=== PATIENT | female | born 1945 | race African-American/Black ===

== ENCOUNTER 2016-05-25 10:32 | Emergency (ER) | payer MEDICARE ==
[~2016-05-25] VITALS: Ht 167.6 cm; Wt 90.7 kg
[~2016-05-25 10:32] MED LIST: AMLO10TA2 PO; CALC600T PO; CHOL10002 PO; ERGO2000 PO; GLIM4TAB2 PO; LISI1TAB7 PO; METF10002 PO; OMEG500C3 PO; POTA10CA PO; POTA99TA PO
--- NOTE | 2016-05-25 11:27 | RAD ---
Portable chest, 05/25/2016: History: Abnormal EKG The heart is mildly enlarged. There is tortuosity of the thoracic aorta. The pulmonary vascularity is normal. No pulmonary infiltrates are seen. There is no evidence of pleural fluid. Mild degenerative changes are evident in the spine. IMPRESSION: 1. Mild cardiomegaly and aortic ectasia. 2. No acute abnormality is detected.
--- NOTE | 2016-05-25 11:34 | EKG ---
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
[2016-05-25 11:36] LABS: BASO # 0.1 x10^3/uL (0.0-0.2); BASO % 1 % (0-3); EOS % 2 % (0-3); HEMATOCRIT 43.1 % (36.0-47.0); HEMOGLOBIN 14.2 g/dL (12.0-15.5); LYMPH % 25 % (24-48); MEAN CORPUSCULAR HEMOGLOBIN 26 pg (25-35); MEAN CORPUSCULAR HGB CONC 33 g/dL (31-37); MEAN CORPUSCULAR VOLUME 79 fL (79-100); MONO % 8 % (0-9); NEUT % 65 % (31-73); PLATELET COUNT 340 x10^3/uL (140-400); RED BLOOD COUNT 5.45 x10^6/uL (3.50-5.40); RED CELL DISTRIBUTION WIDTH 13.7 % (11.5-14.5); WHITE BLOOD COUNT 7.9 x10^3/uL (4.0-11.0)
[2016-05-25 11:50] LABS: CALCIUM 9.4 mg/dL (8.5-10.1); CREATININE 0.7 mg/dL (0.6-1.0); GFR 100.1; POTASSIUM 3.3 mmol/L (3.5-5.1)
[2016-05-25 11:59] LABS: DIRECT BILIRUBIN 0.1 mg/dL (0.0-0.2); MAGNESIUM 1.7 mg/dL (1.8-2.4); TOTAL BILIRUBIN 0.5 mg/dL (0.2-1.0)
[2016-05-25 12:05] LABS: CKMB INDEX 1.3 % (0-4); CKMB MASS 2.9 ng/mL (0.0-3.6)
[2016-05-25 12:18] VITALS: BP 170/85
--- NOTE | 2016-05-25 12:46 | PHYS DOC ---
Past Medical History Past Medical History: Diabetes-Type II, Hypertension Past Surgical History: Hysterectomy, Other Additional Past Surgical Histo: bladder sling; left knee Alcohol Use: None Drug Use: None Adult General Chief Complaint Chief Complaint: abnormal EKG HPI HPI Patient is a 70 year old female sent from her physician's office to the ED today for an abnormal EKG. The patient was seeing Dr. Sharp for a routine office visit. Her blood pressure was found to be a bit elevated, about 160 systolic. The patient recently had a in the family of her brother who of an [place]. The patient takes blood pressure medicine but in fact has not taken her medication yet today, she usually takes it at noon and her office visit was before noon. She had no complaints of chest pain, no shortness of air , no complaints of any type actually. Because of her elevated blood pressure, an EKG was obtained in the office and was found to be abnormal to the patient was sent to the ED for further evaluation. The patient has no complaints whatsoever although she is somewhat concerned about her elevated blood pressure and abnormal EKG. PCP Dr. Sharp Review of Systems Review of Systems Constitutional: Denies fever or chills , denies lightheadedness or syncope Eyes: Denies change in visual acuity, redness, or eye pain [] HENT: Denies nasal congestion or sore throat [] Respiratory: Denies cough or shortness of breath [] Cardiovascular: Denies chest pain GI: Denies abdominal pain, nausea, vomiting, bloody stools or diarrhea [] : Denies dysuria or hematuria [] Musculoskeletal: Denies back pain or joint pain [] Integument: Denies rash or skin lesions [] Neurologic: Denies headache, focal weakness or sensory changes [] Allergies Allergies Allergies Coded Allergies Type Severity Reaction Last Updated Verified Penicillins Allergy Severe Rash 05/27/15 Yes Physical Exam Physical Exam Constitutional: Well developed, well nourished, no acute distress, non-toxic appearance. [] HENT: Normocephalic, atraumatic, bilateral external ears normal, nose normal. [] Eyes: conjunctiva normal, no discharge. [] Neck: Normal range of motion, no stridor. [] Cardiovascular:Heart rate regular rhythm, no murmur [] Lungs & Thorax: Bilateral breath sounds clear to auscultation [] Abdomen: Bowel sounds normal, soft, no tenderness, no masses, no pulsatile masses. [] Skin: Warm, dry, no erythema, no rash. [] Extremities: No tenderness, no cyanosis, no clubbing, ROM intact, no edema. [] Neurologic: Alert and oriented X 3, normal motor function, normal sensory function, no focal deficits noted. [] Current Patient Data Vital Signs Vital Signs Date Time Temp Pulse Resp B/P Pulse Ox O2 Delivery O2 Flow Rate FiO2 05/25/16 11:51 87 20 168/94 96 Room Air 05/25/16 10:42 97.9 97.9 Lab Values Laboratory Tests Test 05/25/16 11:25 White Blood Count 7.9x10^3/uL (4.0-11.0) Red Blood Count 5.45x10^6/uL (3.50-5.40) H Hemoglobin 14.2g/dL (12.0-15.5) Hematocrit 43.1% (36.0-47.0) Mean Corpuscular Volume 79fL (79-100) Mean Corpuscular Hemoglobin 26pg (25-35) Mean Corpuscular Hemoglobin Concent 33g/dL (31-37) Red Cell Distribution Width 13.7% (11.5-14.5) Platelet Count 340x10^3/uL (140-400) Neutrophils (%) (Auto) 65% (31-73) Lymphocytes (%) (Auto) 25% (24-48) Monocytes (%) (Auto) 8% (0-9) Eosinophils (%) (Auto) 2% (0-3) Basophils (%) (Auto) 1% (0-3) Neutrophils # (Auto) 5.1x10^3uL (1.8-7.7) Lymphocytes # (Auto) 2.0x10^3/uL (1.0-4.8) Monocytes # (Auto) 0.6x10^3/uL (0.0-1.1) Eosinophils # (Auto) 0.1x10^3/uL (0.0-0.7) Basophils # (Auto) 0.1x10^3/uL (0.0-0.2) Sodium Level 141mmol/L (136-145) Potassium Level 3.3mmol/L (3.5-5.1) L Chloride Level 102mmol/L (98-107) Carbon Dioxide Level 29mmol/L (21-32) Anion Gap 10 (6-14) Blood Urea Nitrogen 10mg/dL (7-20) Creatinine 0.7mg/dL (0.6-1.0) Estimated GFR (Cockcroft-Gault) 100.1 Glucose Level 153mg/dL (70-99) H Calcium Level 9.4mg/dL (8.5-10.1) Magnesium Level 1.7mg/dL (1.8-2.4) L Total Bilirubin 0.5mg/dL (0.2-1.0) Direct Bilirubin 0.1mg/dL (0.0-0.2) Aspartate Amino Transferase (AST) 25U/L (15-37) Alanine Aminotransferase (ALT) 29U/L (14-59) Alkaline Phosphatase 67U/L (46-116) Creatine Kinase 231U/L (26-192) H Creatine Kinase MB (Mass) 2.9ng/mL (0.0-3.6) Creatine Kinase MB Relative Index 1.3% (0-4) Troponin I Quantitative < 0.017ng/mL (0.000-0.055) BJ-Xtj-Q-Type Natriuretic Peptide 36pg/mL (0-124) Total Protein 8.0g/dL (6.4-8.2) Albumin 4.0g/dL (3.4-5.0) Laboratory Tests 05/25/16 11:25 Laboratory Tests 05/25/16 11:25 EKG EKG 12-lead EKG read by me. There is no previous EKG in the patient's medical record here. Sinus rhythm. Heart rate 89. Left anterior fascicular block. Right bundle branch block. Bifascicular block. No STEMI. 1042 [] Radiology/Procedures Radiology/Procedures Portable chest x-ray read by the radiologist. No acute abnormality detected. [] Course & Med Decision Making Course & Med Decision Making Pertinent Labs and Imaging studies reviewed. (See chart for details) 70-year-old female presents for the complaint of abnormal EKG. She has a bifascicular block. Her blood pressure was also elevated, when she got here systolic of 184, however she has not taken her blood pressure medicine which was due to be taken at noon. She had it with her so I had her go ahead and take her own blood pressure medicine. I reviewed her chart and she has had a normal echocardiogram and normal nuclear stress test a couple of years ago here although she does not have an old EKG in our records for comparison. Dr. Sharp was able to look at an old EKG in the chart at the office and states that the bifascicular block is new. Labs remarkable only for potassium 3.3. The patient does take potassium supplementation. I ask her to increase her dose, double dose for the next week and follow that up with her PCP. I discussed the new finding of bifascicular block with Amparo, with the cardiology team. She reviewed the patient's EKG and visited with the patient, she made arrangements for the patient to be seen next week as an outpatient in the cardiology office. The patient and her family member are agreeable to that plan. [] Dragon Disclaimer Dragon Disclaimer This electronic medical record was generated, in whole or in part, using a voice recognition dictation system. Departure Departure Impression: Primary Impression: Bifascicular bundle branch block Additional Impression: Hypertension Disposition: 01 HOME, SELF-CARE Condition: STABLE Referrals: JESUS SHARP MD (PCP) Additional Instructions: Today, your blood pressure was high, but you had not taken your dose of blood pressure medicine yet. Continue to take your blood pressure medicine as prescribed. Be sure to take it is close to every 12 hours as you can. Your potassium was a little bit low. Double your dose of potassium (take 2 pills instead of 1) every day for one week. Let your doctor know about this the next time you are seen. Your EKG shows a partial heart block as we discussed. The cardiology team has made arrangements for you to follow up in the office to see the center specialists about this. Problem Qualifiers MÓNICA CHOWDARY MD May 25, 2016 12:46
== END 2016-05-25 13:13 | disposition home or self-care (01) ==
LOC: ER 10:32
DX: I45.2 Bifascicular block (principal); I10 Essential (primary) hypertension; E11.9 Type 2 diabetes mellitus without complications; Z82.49 Family history of ischemic heart disease and other diseases of the circulatory system; Z88.0 Allergy status to penicillin
CPT/HCPCS: 36415; 71010; 80048; 80076; 82553; 83735; 83880; 84484; 85027; 93005; 99285-25

== ENCOUNTER → 2016-06-17 | Outpatient (CLI) | payer MEDICARE ==
[2016-05-25 12:18] VITALS: BP 170/85
[~2016-06-17] MED LIST changes: +REGADENOSON 0.4 MG/5 ML DISP.SYRIN. IV ONE
--- NOTE | 2016-06-17 09:12 | CARD ---
APPROVED REPORT EXAM: Two-dimensional and M-mode echocardiogram with Doppler and color Doppler. Other Information Quality : GoodHR: 75bpm Rhythm : NSR INDICATION Abnormal EKG RISK FACTORS Hypertension Obesity 2D DIMENSIONS RVDd2.3 (2.9-3.5cm)Left Atrium(2D)3.6 (1.6-4.0cm) IVSd1.3 (0.7-1.1cm)Aortic Root(2D)3.4 (2.0-3.7cm) LVDd3.5 (3.9-5.9cm)LVOT Diameter2.2 (1.8-2.4cm) PWd2.2 (0.7-1.1cm) Aortic Valve AoV Peak Juan.158.9cm/sAoV VTI29.6cm AO Peak GR.10.1mmHgLVOT Peak Juan.123.0cm/s AO Mean GR.5mmHgAVA (VMAX)2.99cm2 AI P 1/2 Qcoy210ie Mitral Valve MV E Bltakrls77.9cm/sMV E Peak Gr.5mmHg MV DECEL [id number] A Eldazurn487.8cm/s MV E Mean Gr.2mmHgE/A Ratio0.6 MV A [id number] Pulmonary Valve PV Peak Quenvwbh51.6cm/s Tricuspid Valve TR P. Yxfokwhc837sg/sTR Peak Gr.40mmHg Pulmonary Vein S1 Ventgroq11.4cm/sD2 Scolnbts08.7cm/s PVa [id number] LEFT VENTRICLE The left ventricle is normal size. There is mild concentric left ventricular hypertrophy. The left ve ntricular systolic function is normal. The Ejection Fraction is 60-65%. There is normal LV segmental wall motion. Transmitral Doppler flow pattern is Grade I-abnormal relaxation pattern. RIGHT VENTRICLE The right ventricle is normal size. There is normal right ventricular wall thickness. The right ventr icular systolic function is normal. ATRIA The left atrium is mildly dilated. The right atrium size is normal. The interatrial septum is intact with no evidence for an atrial septal defect or patent foramen ovale as noted on 2-D or Doppler imagi ng. AORTIC VALVE The aortic valve is moderately sclerotic. Doppler and Color Flow revealed mild aortic regurgitation. There is no significant aortic valvular stenosis. MITRAL VALVE The mitral valve leaflets are thickened. There is no evidence of mitral valve prolapse. There is no m itral valve stenosis. Doppler and Color Flow revealed mild mitral regurgitation. TRICUSPID VALVE Doppler and Color Flow revealed mild tricuspid regurgitation. The pulmonary artery systolic pressure is estimated at 44 mmHg. There is mild pulmonary hypertension. PULMONIC VALVE The pulmonary valve is normal in structure and function. Doppler and Color Flow revealed no pulmonic valvular regurgitation. There is no pulmonic valvular stenosis. GREAT VESSELS The aortic root is normal in size. The ascending aorta is Mildly dilated. The pulmonary artery is nor mal. The IVC is normal in size and collapses >50% with inspiration. PERICARDIAL EFFUSION There is no evidence of significant pericardial effusion. Critical Notification Critical Value: No <Conclusion> The left ventricular systolic function is normal. The Ejection Fraction is 60-65%. There is normal LV segmental wall motion. Transmitral Doppler flow pattern is Grade I-abnormal relaxation pattern. Mild aortic regurgitation. Mild mitral regurgitation. Mild tricuspid regurgitation. The pulmonary artery systolic pressure is estimated at 44 mmHg. There is mild pulmonary hypertension. There is no evidence of significant pericardial effusion.
--- NOTE | 2016-06-17 13:39 | RAD ---
APPROVED REPORT Test Type: Pharmacological Stress Nurse/Tech: ERMIAS Holt RN Test Indications: Abnormal EKG Cardiac History: HTN, see EHR Medications: see EHR Medical History: diabetes, see EHR Resting ECG: SR BBB Resting Heart Rate: 73 bpm Resting Blood Pressure: 145/77mmHg Pretest Chest Pain: No chest pain Nurse/Tech Notes Lungs CTA, heart tones WNL Consent: The procedure was explained to the patient in lay terms. Informed consent was witnessed. Eddie eout was entered into [employer]. History and Stress Test performed by RT Malorie (R) (N) Pharm. Details Pharmacologic stress testing was performed using 0.4mg per 5ml of regadenoson given intravenously ove r 7-10 seconds. Stress Symptoms No chest pain or symptoms. POST EXERCISE Reason for Termination: Infusion complete Max HR: 92 bpm 72% of Maximum Predicted HR: 127 bpm Max Blood Pressure: 133/68mmHg Chest Pain: No. Arrhythmia: No. ST Change: No. INTERPRETATION Stress EKG Conclusion: Baseline EKG showed sinus rhythm, RBBB, LAFB. Non diagnostic changes at peak stress. No arrhythmias. Imaging Protocol IMAGE PROTOCOL: Rest Tc-99m/stress Tc-99m 1 day Rest: Stress: Viability: Radiopharm.Tc99m YumlvrpwlHd19x Sestamibi Ftma32rWc 34mCi Duration 15min. 10min. Img Date 06/17/2016 06/17/2016 Inj-Img [id number]. 60min. Rest Admin Site:IV - Right AntecubitalAdministrator:RAHUL Steel, JOSE (R)(N) Stress Admin Site: IV - Right AntecubitalAdministrator: RT Malorie (R)(N) STRESS DATA End Diast. Vol.112.0mlAv. Heart Rate77.0bpm End Syst. Vol.34.0mlCO Index BSA0.0L/min Myocardial Fvcs048.0gEject. Aiggcsyr99.0% Stress Rates Pk. Fill Rate2.15EDV/secLVtime Pk. Fill 160.11msec Pk. Empty Rate4.03ESV/secLVtime Pk. Lzpvm195.36msec 1/3 Pk. Fill1.35EDV/sec Stress Scores Regional WT1.00Summed WT8.00 Regional WM0.00Summed WM0.00 LV Perfusion Scintigraphic images showed small fixed defect involving the apical wall consistent with previous devendra cardial infarction without any significant reversibility. Wall Motion Normal left ventricle systolic function with ejection fraction calculated at 70%. LV Perf. Quant 17 Seg. SSS9.00 17 Seg. SRS7.00 17 Seg. SDS2.00 Stress Defect Extent (% LAD)28.80Rest Defect Extent (% LAD)23.80Rev. Defect Extent (% LAD)7.50 Stress Defect Extent (% LCX) 51.30Rest Defect Extent (% LCX)45.00Rev. Defect Extent (% LCX)3.80 Stress Defect Extent (% RCA)0.00Rest Defect Extent (% RCA)0.00Rev. Defect Extent (% RCA)0.00 Stress Defect Extent (% DEVENDRA)23.50Rest Defect Extent (% DEVENDRA)19.30Rev. Defect Extent (% DEVENDRA)5.00 Conclusion 1. Regadenoson cardioisotope stress test showed small apical wall infarct without any significant isc hemia. 2. Normal left ventricular systolic function with ejection fraction calculated at 70%. 3. Low risk for cardiac events.
== END | disposition home or self-care (01) ==
LOC: ECHO 07:24
PROVIDERS: ATTEND Internal Medicine Cardiovascular Disease
DX: R94.31 Abnormal electrocardiogram [ECG] [EKG] (principal)
CPT/HCPCS: 78452; 93017; 93306; 96374; 96375; 96376; A9500; J2785